=== PATIENT | male | born 1970 | race Caucasian/White ===

== ENCOUNTER → 2022-10-06 | Day surgery (SDC) | payer OTHER ==
[~2022-10-06] MED LIST: AMLODIPINE BESY10 MG PO; BUPROPION HCL100 MG PO; CRESTOR10 MG PO; FENTANYL CITRATE/PF 100MCG/2 ML INJ ONE; FLOMAX0.4 MG PO; HYDROCHLOROTHIA25 MG PO; LIDOCAINE HCL 2% LOCAL INJ 5 ML SDV VIAL INJ ONE; LISINOPRIL10 MG PO; METHOCARBAMOL750 MG PO; NAPROXEN375 MG PO; NEURONTIN300 MG PO; OMEPRAZOLE40 MG PO; PROPOFOL IV EMULSION 10 MG/ML 20 ML VIAL ONE
[2022-10-06 13:10] VITALS: BP 118/74
== END | disposition home or self-care (01) ==
LOC: OR 09:50
PROVIDERS: ATTEND Internal Medicine Gastroenterology
DX: Z12.11 Encounter for screening for malignant neoplasm of colon (principal); K29.70 Gastritis, unspecified, without bleeding; K21.00 Gastro-esophageal reflux disease with esophagitis, without bleeding; K44.9 Diaphragmatic hernia without obstruction or gangrene; D64.9 Anemia, unspecified; G47.33 Obstructive sleep apnea (adult) (pediatric); I10 Essential (primary) hypertension; E78.5 Hyperlipidemia, unspecified; Z01.810 Encounter for preprocedural cardiovascular examination; Z79.899 Other long term (current) drug therapy
CPT/HCPCS: 43239; 45378; 93005; J2001; J2704; J3010

== ENCOUNTER → 2022-10-20 | Day surgery (SDC) | payer OTHER ==
[~2022-10-20] MED LIST changes: -FENTANYL CITRATE/PF 100MCG/2 ML INJ ONE; +MIDAZOLAM HCL 2 MG/2 ML VIAL ONE
[2022-10-20 14:19] VITALS: BP 110/63
== END | disposition home or self-care (01) ==
LOC: OR 12:40
PROVIDERS: ATTEND Internal Medicine Gastroenterology
DX: Z12.11 Encounter for screening for malignant neoplasm of colon (principal); D12.3 Benign neoplasm of transverse colon; D12.4 Benign neoplasm of descending colon; K64.8 Other hemorrhoids; K30 Functional dyspepsia; K21.9 Gastro-esophageal reflux disease without esophagitis; D64.9 Anemia, unspecified; I10 Essential (primary) hypertension; E78.5 Hyperlipidemia, unspecified; Z79.899 Other long term (current) drug therapy
CPT/HCPCS: 45384; 45385; J2001; J2250; J2704; 45378